=== PATIENT | male | born 1965 | race Hispanic/Latino ===

== ENCOUNTER 2018-01-11 22:43 | Inpatient (IN) | payer MEDICAID, OTHER ==
[~2018-01-11] VITALS: Ht 165.1 cm; Wt 95.7 kg
[2018-01-11 23:59] LABS: BASOPHILS % (AUTO) 0.7 % (0.0-5.0); EOSINOPHILS % (AUTO) 0.5 % (0.0-8.0); HEMATOCRIT 45.5 % (42-54); MEAN CORPUSCULAR HEMOGLOBIN 29.6 pg (27.0-33.0); MEAN CORPUSCULAR HGB CONC 33.8 g/dL (32.0-36.0); MEAN CORPUSCULAR VOLUME 87.5 fL (79-99); MONOCYTES % (AUTO) 5.3 % (3.0-13.0); NEUTROPHILS % (AUTO) 83.5 % (40.0-77.0); PLATELET COUNT (AUTO) 186 K/uL (130-400); RED BLOOD CELL COUNT(AUTO) 5.21 MIL/uL (4.50-6.20); RED CELL DISTRIBUTION WIDTH 12.9 % (11.0-15.5); WHITE BLOOD COUNT (AUTO) 14.3 K/uL (4.8-10.8)
[2018-01-12] LABS: APPEARANCE,URINE Clear (CLEAR); BILIRUBIN,URINE Negative (NEGATIVE); COLOR,URINE Yellow (YELLOW); GLUCOSE, URINE (UA) >=1000 mg/dL (NEGATIVE); KETONES,URINE Trace mg/dL (NEGATIVE); LEUKOCYTE ESTERASE ,URINE Negative (NEGATIVE); NITRATE,URINE Negative (NEGATIVE); OCCULT BLOOD,URINE Negative (NEGATIVE); PH,URINE 5.5 (5.0-8.0); PROTEIN,URINE Negative (NEGATIVE)
[2018-01-12 00:06] LABS: CARBON DIOXIDE 24 mmol/L (21-32); CHLORIDE 99 mmol/L (101-111); CREATININE 1.2 mg/dL (0.5-1.5); GLOMERULAR FILTR. RATE CALC 68 mL/min (>60); GLUCOSE,RANDOM 388 mg/dL (70-105); SODIUM SERUM 134 mmol/L (136-145); UREA NITROGEN, BLOOD 16 mg/dL (7-18)
[2018-01-12] MEDS ORDERED: TETANUS/DIPHTHERIA TOXOID [ADULT] 0.5 ML VIAL IM ONE (00:16)
[2018-01-12] MEDS ORDERED: CEFTRIAXONE SODIUM 1 GM ONE (00:16)
[2018-01-12] MEDS ORDERED: ACETAMINOPHEN 325 MG TAB ONE (00:16)
[2018-01-12] MEDS ORDERED: SODIUM CHLORIDE 0.9% 50 ML IV ONE (00:16)
[2018-01-12 00:19] LABS: BACTERIA,URINE Rare /HPF (None Seen); RBC,URINE 0-1 /HPF (0-1); SQUAMOUS EPITHELIAL CELL,UR 0-2 /HPF (0-2); WBC,URINE 0-1 /HPF (0-1)
[2018-01-12 00:20] LABS: ALANINE AMINOTRANSFERASE 42 U/L (12-78); ALBUMIN 3.4 g/dL (3.5-5.0); ASPARTATE AMINOTRANSFERASE 14 U/L (10-37); BILIRUBIN,TOTAL 0.6 mg/dL (0.2-1.0); CREATINE KINASE, TOTAL 72 U/L (21-232); MYOGLOBIN 26 ng/mL (10-92); TOTAL PROTEIN, SERUM 7.8 g/dL (6.0-8.3); TROPONIN I < 0.04 ng/mL (0.00-0.06)
[2018-01-12 00:24] LABS: PARTIAL THROMBOPLASTIN TIME 30.2 SEC (26.3-35.5); PROTHROMBIN TIME 10.5 SEC (9.6-11.6)
[2018-01-12] MEDS ORDERED: INSULIN HUMULIN R 100 UNIT/ML 3ML ONE (00:34)
[2018-01-12] MEDS ORDERED: ONDANSETRON HCL 4 MG/2 ML VIAL ONE (01:03)
[2018-01-12] MEDS ORDERED: MORPHINE SULFATE 2 MG/ML 1ML SYG ONE (01:03)
[2018-01-12] MEDS ORDERED: VANCOMYCIN 1GM+NS 250ML 250 ML IV SCH (02:00)
[2018-01-12] MEDS ORDERED: ACETAMINOPHEN 325 MG TAB PO PRN (02:00)
[2018-01-12 03:08] LABS: ALBUMIN 3.1 g/dL (3.5-5.0); BILIRUBIN,TOTAL 0.8 mg/dL (0.2-1.0); CREATININE 0.9 mg/dL (0.5-1.5); POTASSIUM 3.9 mmol/L (3.5-5.1); TOTAL PROTEIN, SERUM 7.1 g/dL (6.0-8.3)
[2018-01-12 03:15] VITALS: BP 134/85
[2018-01-12 03:24] LABS: BASOPHILS % (AUTO) 0.9 % (0.0-5.0); EOSINOPHILS % (AUTO) 0.4 % (0.0-8.0); HEMATOCRIT 42.4 % (42-54); LYMPHOCYTES % (AUTO) 9.9 % (21.0-51.0); MEAN CORPUSCULAR HEMOGLOBIN 29.8 pg (27.0-33.0); MEAN CORPUSCULAR HGB CONC 34.4 g/dL (32.0-36.0); MEAN CORPUSCULAR VOLUME 86.6 fL (79-99); MONOCYTES % (AUTO) 6.4 % (3.0-13.0); NEUTROPHILS % (AUTO) 82.4 % (40.0-77.0); PLATELET COUNT (AUTO) 170 K/uL (130-400); WHITE BLOOD COUNT (AUTO) 14.6 K/uL (4.8-10.8)
[2018-01-12] MEDS ORDERED: VANCOMYCIN PROTOCOL PER PHARMACY IV SCH (03:45)
[2018-01-12] MEDS ORDERED: PHARMACY COMMUNICATION MISC SCH (03:45)
[2018-01-12] MEDS ORDERED: ZOSYN 3.375GM+NS 50ML 50 ML IV SCH (05:00)
[2018-01-12] MEDS: MORPHINE SULFATE 2 MG/ML 1ML SYG IV PRN ×4 (05:42→22:49)
[2018-01-12] MEDS ORDERED: VANCOMYCIN 1GM+NS 250ML 250 ML IV ONE (05:46)
[2018-01-12] MEDS: SODIUM CHLORIDE 0.9% 1000ML 1,000 ML IV SCH ×3 (05:48→17:51)
[2018-01-12] MEDS: VANCOMYCIN 1.5 GM in SODIUM CHLORIDE 0.9% 250 ML IV SCH ×2 (06:40→20:54)
[2018-01-12] MEDS ORDERED: COMPOUND IV REFRIGERATED 1 EACH IVSOLN MISC PRN (06:45)
[2018-01-12 08:10] VITALS: BP 140/82
[2018-01-12] MEDS: FAMOTIDINE 20MG TAB 20 MG TAB PO SCH ×2 (09:36→20:54)
[2018-01-12] MEDS: INSULIN LISPRO 100 UNIT/ML 3ML SQ SCH ×3 (09:58→18:06)
[2018-01-12 11:39] VITALS: BP 138/86
[2018-01-12 15:44] VITALS: BP 129/92
[2018-01-12] MEDS: ZOSYN 3.375GM+NS 50ML 50 ML IV SCH ×2 (17:51→20:54)
[2018-01-12 19:45] VITALS: BP 142/99
[2018-01-12] MEDS: INSULIN GLARGINE 100 UNITS/ML 10 ML VIAL SQ SCH (21:00)
[2018-01-12 23:25] VITALS: BP 138/93
[2018-01-13] VITALS (27 sets, daily range): BP systolic 109–141; BP diastolic 67–89
[2018-01-13] MEDS: ZOSYN 3.375GM+NS 50ML 50 ML IV SCH ×3 (04:48→20:55)
[2018-01-13] MEDS: SODIUM CHLORIDE 0.9% 1000ML 1,000 ML IV SCH ×5 (04:55→16:13)
[2018-01-13] MEDS: MORPHINE SULFATE 2 MG/ML 1ML SYG IV PRN (04:55)
[2018-01-13 05:39] LABS: HEMATOCRIT 42.6 % (42-54); MEAN CORPUSCULAR HEMOGLOBIN 29.4 pg (27.0-33.0); MEAN CORPUSCULAR VOLUME 86.5 fL (79-99); PLATELET COUNT (AUTO) 184 K/uL (130-400); RED BLOOD CELL COUNT(AUTO) 4.93 MIL/uL (4.50-6.20); RED CELL DISTRIBUTION WIDTH 12.6 % (11.0-15.5); WHITE BLOOD COUNT (AUTO) 12.7 K/uL (4.8-10.8)
[2018-01-13 06:16] LABS: CRP QUANTITATIVE 63.7 mg/L (0.00-9.0)
[2018-01-13 06:21] LABS: CREATININE 0.9 mg/dL (0.5-1.5)
[2018-01-13] MEDS: INSULIN LISPRO 100 UNIT/ML 3ML SQ SCH ×3 (06:40→17:02)
[2018-01-13] MEDS: FAMOTIDINE 20MG TAB 20 MG TAB PO SCH ×2 (09:00→20:55)
[2018-01-13] MEDS: VANCOMYCIN 1.5 GM in SODIUM CHLORIDE 0.9% 250 ML IV SCH ×2 (09:10→20:55)
[2018-01-13] MEDS ORDERED: ONDANSETRON HCL 4 MG/2 ML VIAL ONE (11:10)
[2018-01-13] MEDS ORDERED: DEXAMETHASONE SOD PHOSPHATE 10MG/ML 1ML VIAL ONE (11:10)
[2018-01-13] MEDS ORDERED: PROPOFOL 10 MG/ML 20ML VIAL IV ONE ×2 (11:10→11:24)
[2018-01-13] MEDS ORDERED: LIDOCAINE PF 2% 5ML ABBOJECT ONE (11:10)
[2018-01-13] MEDS ORDERED: MIDAZOLAM HCL 1 MG/ML 2ML VIAL ONE (11:10)
[2018-01-13] MEDS ORDERED: FENTANYL CITRATE PF 50 MCG/1 ML 2ML VIAL ONE ×2 (11:10→11:25)
[2018-01-13] MEDS ORDERED: ONDANSETRON HCL 4 MG/2 ML VIAL IVP PRN (11:45)
[2018-01-13] MEDS ORDERED: MORPHINE SULFATE 2 MG/ML 1ML SYG IV PRN (11:45)
[2018-01-13] MEDS ORDERED: SODIUM CHLORIDE 3% FOR INHALATION 4 ML/AMP VIAL.NEB IH ONE (11:50)
[2018-01-13] MEDS ORDERED: RACEPINEPHRINE HCL 2.25% 0.5 ML NEB SOLN ONE (11:50)
[2018-01-13] MEDS ORDERED: NALOXONE HCL 0.4 MG/1 ML ML ONE (12:02)
[2018-01-13] MEDS: INSULIN GLARGINE 100 UNITS/ML 10 ML VIAL SQ SCH (20:59)
[2018-01-14] VITALS (7 sets, daily range): BP systolic 115–147; BP diastolic 65–88
[2018-01-14] MEDS: ZOSYN 3.375GM+NS 50ML 50 ML IV SCH ×3 (04:54→21:11)
[2018-01-14 05:11] LABS: HEMATOCRIT 41.2 % (42-54); MEAN CORPUSCULAR HEMOGLOBIN 29.6 pg (27.0-33.0); MEAN CORPUSCULAR HGB CONC 34.2 g/dL (32.0-36.0); MEAN CORPUSCULAR VOLUME 86.5 fL (79-99); PLATELET COUNT (AUTO) 223 K/uL (130-400); RED BLOOD CELL COUNT(AUTO) 4.76 MIL/uL (4.50-6.20); RED CELL DISTRIBUTION WIDTH 12.6 % (11.0-15.5); WHITE BLOOD COUNT (AUTO) 16.2 K/uL (4.8-10.8)
[2018-01-14 05:18] LABS: HEMOGLOBIN A1C 10.6 % (4.0-6.0)
[2018-01-14 05:31] LABS: CREATININE 0.8 mg/dL (0.5-1.5)
[2018-01-14] MEDS: INSULIN LISPRO 100 UNIT/ML 3ML SQ SCH ×3 (07:12→17:26)
[2018-01-14] MEDS: FAMOTIDINE 20MG TAB 20 MG TAB PO SCH ×2 (09:51→21:11)
[2018-01-14] MEDS: VANCOMYCIN 1.75 GM in SODIUM CHLORIDE 0.9% 250 ML IV SCH ×2 (09:51→21:15)
[2018-01-14] MEDS: SODIUM CHLORIDE 0.9% 1000ML 1,000 ML IV SCH (09:51)
[2018-01-14] MEDS: ACETAMINOPHEN-CODEINE 300/30MG TAB PO PRN ×2 (12:22→19:15)
[2018-01-14] MEDS: METFORMIN HCL 500 MG TAB.SR.24H PO SCH (17:21)
[2018-01-14] MEDS: INSULIN HUMULIN R 100 UNIT/ML 3ML SQ SCH ×2 (17:27→21:14)
[2018-01-14] MEDS: INSULIN GLARGINE 100 UNITS/ML 10 ML VIAL SQ SCH (21:16)
[2018-01-15] MEDS: SODIUM CHLORIDE 0.9% 1000ML 1,000 ML IV SCH (03:43)
[2018-01-15 04:28] VITALS: BP 123/84
[2018-01-15] MEDS: ZOSYN 3.375GM+NS 50ML 50 ML IV SCH ×3 (04:57→20:52)
[2018-01-15 05:51] LABS: HEMATOCRIT 39.4 % (42-54); MEAN CORPUSCULAR HEMOGLOBIN 29.6 pg (27.0-33.0); MEAN CORPUSCULAR HGB CONC 34.5 g/dL (32.0-36.0); MEAN CORPUSCULAR VOLUME 85.9 fL (79-99); PLATELET COUNT (AUTO) 234 K/uL (130-400); RED BLOOD CELL COUNT(AUTO) 4.59 MIL/uL (4.50-6.20); RED CELL DISTRIBUTION WIDTH 12.8 % (11.0-15.5); WHITE BLOOD COUNT (AUTO) 11.9 K/uL (4.8-10.8)
[2018-01-15 05:55] LABS: CREATININE 0.9 mg/dL (0.5-1.5); POTASSIUM 3.7 mmol/L (3.5-5.1)
[2018-01-15] MEDS: INSULIN HUMULIN R 100 UNIT/ML 3ML SQ SCH ×4 (06:36→20:53)
[2018-01-15] MEDS: INSULIN LISPRO 100 UNIT/ML 3ML SQ SCH ×3 (06:37→16:45)
[2018-01-15 07:19] LABS: BASOPHILS % (MANUAL) 1 % (0-2); EOSINOPHILS % (MANUAL) 3 % (1-6); LYMPHOCYTES % (MANUAL) 24 % (22-44); MONOCYTES % (MANUAL) 3 % (2-9); SEGMENTED NEUTROPHILS % 69 % (40-70)
[2018-01-15 07:20] LABS: MAN.DIFF COMMENT-IMPRESSION MANUAL DIFFERENTIAL; PLATELET MORPHOLOGY COMMENT ADEQUATE
[2018-01-15 08:00] VITALS: BP 124/78
[2018-01-15] MEDS: FAMOTIDINE 20MG TAB 20 MG TAB PO SCH ×2 (08:24→20:53)
[2018-01-15] MEDS: METFORMIN HCL 500 MG TAB.SR.24H PO SCH ×2 (08:24→16:39)
[2018-01-15] MEDS: VANCOMYCIN 1.75 GM in SODIUM CHLORIDE 0.9% 250 ML IV SCH (08:25)
[2018-01-15] MEDS: ACETAMINOPHEN-CODEINE 300/30MG TAB PO PRN ×2 (08:27→17:33)
[2018-01-15 11:00] VITALS: BP 121/78
[2018-01-15 16:00] VITALS: BP 124/79
[2018-01-15 20:00] VITALS: BP 119/84
[2018-01-15] MEDS: INSULIN GLARGINE 100 UNITS/ML 10 ML VIAL SQ SCH (20:54)
[2018-01-16] VITALS: BP 152/85
[2018-01-16] MEDS: VANCOMYCIN 1.75 GM in SODIUM CHLORIDE 0.9% 250 ML IV SCH ×3 (01:34→22:34)
[2018-01-16] MEDS: ACETAMINOPHEN-CODEINE 300/30MG TAB PO PRN ×3 (02:35→15:45)
[2018-01-16 04:00] VITALS: BP 139/86
[2018-01-16] MEDS: ZOSYN 3.375GM+NS 50ML 50 ML IV SCH ×3 (05:46→22:59)
[2018-01-16] MEDS: GLIPIZIDE 5 MG TABLET PO SCH ×2 (06:28→16:34)
[2018-01-16] MEDS: INSULIN HUMULIN R 100 UNIT/ML 3ML SQ SCH ×4 (06:41→23:04)
[2018-01-16 07:55] VITALS: BP 148/93
[2018-01-16] MEDS: FAMOTIDINE 20MG TAB 20 MG TAB PO SCH ×2 (08:44→22:33)
[2018-01-16] MEDS: METFORMIN HCL 500 MG TAB.SR.24H PO SCH ×2 (08:45→16:34)
[2018-01-16] MEDS ORDERED: DIPHENHYDRAMINE HCL 25 MG CAPSULE PO PRN (10:15)
[2018-01-16 11:24] VITALS: BP 125/94
[2018-01-16 16:19] VITALS: BP 129/78
[2018-01-16 20:00] VITALS: BP 120/86
[2018-01-16] MEDS: INSULIN GLARGINE 100 UNITS/ML 10 ML VIAL SQ SCH (23:05)
[2018-01-17] VITALS: BP 133/82
[2018-01-17 04:00] VITALS: BP 144/88
[2018-01-17 05:22] LABS: HEMATOCRIT 42.1 % (42-54); MEAN CORPUSCULAR HEMOGLOBIN 29.9 pg (27.0-33.0); MEAN CORPUSCULAR HGB CONC 34.8 g/dL (32.0-36.0); MEAN CORPUSCULAR VOLUME 85.8 fL (79-99); NUCLEATED RED BLOOD CELLS 0.1 % (0.0-0.19); PLATELET COUNT (AUTO) 278 K/uL (130-400); RED CELL DISTRIBUTION WIDTH 12.9 % (11.0-15.5); WHITE BLOOD COUNT (AUTO) 10.5 K/uL (4.8-10.8)
[2018-01-17 05:37] LABS: CREATININE 0.8 mg/dL (0.5-1.5); POTASSIUM 3.4 mmol/L (3.5-5.1)
[2018-01-17] MEDS ORDERED: LIDOCAINE HCL-MPF 1% 2ML VIAL IVP PRN (06:15)
[2018-01-17] MEDS ORDERED: POTASSIUM CHLORIDE 20 MEQ ERTAB PO PRN (06:15)
[2018-01-17] MEDS ORDERED: POTASSIUM CHLORIDE 10% ELIXIR 20 MEQ/15 ML UDCUP PO PRN (06:15)
[2018-01-17] MEDS ORDERED: POTASSIUM CHLORIDE 10MEQ/100ML 100 ML IV PRN (06:15)
[2018-01-17] MEDS: INSULIN HUMULIN R 100 UNIT/ML 3ML SQ SCH (07:30)
[2018-01-17] MEDS: ZOSYN 3.375GM+NS 50ML 50 ML IV SCH (07:52)
[2018-01-17] MEDS: GLIPIZIDE 5 MG TABLET PO SCH (08:11)
[2018-01-17] MEDS: METFORMIN HCL 500 MG TAB.SR.24H PO SCH (08:11)
[2018-01-17] MEDS: FAMOTIDINE 20MG TAB 20 MG TAB PO SCH (08:11)
[2018-01-17 08:41] VITALS: BP 138/89
[2018-01-17] MEDS ORDERED: CLIN300C9 PO (10:15)
[2018-01-17 12:02] VITALS: BP 135/72
== END 2018-01-17 13:00 | disposition home or self-care (01) | DRG 383 ==
LOC: EDH 22:43 → EDHIP 22:44 → OBSVTOIN 22:44 → 3AH 01-12 03:57
PROVIDERS: ADMIT Hospitalist; ATTEND Hospitalist
PROC: 3E0234Z Introduction of Serum, Toxoid and Vaccine into Muscle, Percutaneous Approach (ICD-10-PCS; 2018-01-13)
PROC: 0H9LXZZ Drainage of Left Lower Leg Skin, External Approach (ICD-10-PCS; principal; 2018-01-13 11:10)
DX: L03.116 Cellulitis of left lower limb (principal); E11.65 Type 2 diabetes mellitus with hyperglycemia; L02.416 Cutaneous abscess of left lower limb; B95.61 Methicillin susceptible Staphylococcus aureus infection as the cause of diseases classified elsewhere; E87.6 Hypokalemia; Z88.7 Allergy status to serum and vaccine; Z79.4 Long term (current) use of insulin; Z23 Encounter for immunization; Z82.49 Family history of ischemic heart disease and other diseases of the circulatory system; Z83.3 Family history of diabetes mellitus; Z80.9 Family history of malignant neoplasm, unspecified
CPT/HCPCS: 36415; 71045; 80048; 80053; 80061; 80202; 81001; 82550; 82948; 83036; 83605; 83874; 84484; 85025; 85027; 85610; 85730; 86140; 87040; 87070; 87076; 87077; 87088; 87186; 87205; 90714; 93005; 94640; J0696; J1100; J1815; J2001; J2250; J2310; J2405; J2543; J2704; J3010; J3370; J7030; Q0163

== ENCOUNTER 2020-07-27 20:14 | Inpatient (IN) | payer MEDICAID, OTHER ==
[~2020-07-27] VITALS: Ht 167.6 cm; Wt 88.9 kg
[~2020-07-27 20:14] MED LIST: CLIN300C10 PO
[2020-07-27] MEDS ORDERED: ONDANSETRON HCL 4 MG/2 ML VIAL ONE (20:31)
[2020-07-27] MEDS ORDERED: SODIUM CHLORIDE 0.9% 1000ML 2,000 ML IV ONE (20:32)
[2020-07-27 20:47] LABS: BASOPHILS % (AUTO) 0.5 % (0.0-5.0); EOSINOPHILS % (AUTO) 0.1 % (0.0-8.0); HEMATOCRIT 41.8 % (42-54); LYMPHOCYTES % (AUTO) 5.8 % (21.0-51.0); MEAN CORPUSCULAR HGB CONC 34.4 g/dL (32.0-36.0); MEAN CORPUSCULAR VOLUME 84.1 fL (79-99); MONOCYTES % (AUTO) 5.3 % (3.0-13.0); NEUTROPHILS % (AUTO) 86.8 % (40.0-77.0); PLATELET COUNT (AUTO) 152 K/uL (130-400); RED BLOOD CELL COUNT(AUTO) 4.97 MIL/uL (4.50-6.20); RED CELL DISTRIBUTION WIDTH 12.6 % (11.0-15.5); WHITE BLOOD COUNT (AUTO) 16.5 K/uL (4.8-10.8)
[2020-07-27 21:11] LABS: CREATININE 1.1 mg/dL (0.5-1.5); POTASSIUM 4.9 mmol/L (3.5-5.1)
[2020-07-27 21:16] LABS: ALBUMIN 2.9 g/dL (3.5-5.0); BILIRUBIN,TOTAL 2.4 mg/dL (0.2-1.0); TOTAL PROTEIN, SERUM 7.6 g/dL (6.0-8.3)
[2020-07-27 21:35] LABS: BAND NEUTROPHILS % (MANUAL) 29 % (0-2); LYMPHOCYTES % (MANUAL) 10 % (22-44); METAMYELOCYTES % 1 % (0-0); MONOCYTES % (MANUAL) 5 % (2-9); SEGMENTED NEUTROPHILS % 55 % (40-70)
[2020-07-27 21:36] LABS: MAN.DIFF COMMENT-IMPRESSION MANUAL DIFFERENTIAL; PLATELET MORPHOLOGY COMMENT ADEQUATE
[2020-07-27] MEDS ORDERED: SODIUM CHLORIDE 0.9% 1000ML 1,000 ML IV ONE ×2 (22:05→23:33)
[2020-07-27] MEDS ORDERED: SODIUM CHLORIDE 0.9% 50 ML IV ONE (22:05)
[2020-07-27] MEDS ORDERED: ZOSYN 3.375GM+NS 50ML 50 ML IV ONE (22:07)
[2020-07-27 22:43] LABS: APPEARANCE,URINE Clear (CLEAR); BILIRUBIN,URINE Negative (NEGATIVE); COLOR,URINE Yellow (YELLOW); GLUCOSE, URINE (UA) >=1000 mg/dL (NEGATIVE); KETONES,URINE 40 mg/dL (NEGATIVE); LEUKOCYTE ESTERASE ,URINE Negative (NEGATIVE); NITRATE,URINE Negative (NEGATIVE); OCCULT BLOOD,URINE Moderate (NEGATIVE); PH,URINE 5.5 (5.0-8.0); PROTEIN,URINE POS 1+ mg/dL (NEGATIVE)
[2020-07-27 22:51] LABS: AMPHET/METH SCREEN,URINE NEGATIVE (NEGATIVE); BARBITURATE SCREEN, URINE NEGATIVE (NEGATIVE); BENZODIAZEPINES SCREEN,URINE NEGATIVE (NEGATIVE); CANNABINOID SCREEN,URINE NEGATIVE (NEGATIVE); COCAINE SCREEN,URINE NEGATIVE (NEGATIVE); OPIATE SCREEN,URINE NEGATIVE (NEGATIVE); PHENCYCLIDINE SCREEN,URINE NEGATIVE (NEGATIVE)
[2020-07-27 22:55] LABS: BACTERIA,URINE Few /HPF (None Seen); SQUAMOUS EPITHELIAL CELL,UR 0-2 /HPF (0-2)
[2020-07-27] MEDS ORDERED: ACETAMINOPHEN EXTRA STRENGTH 500 MG TABLET ONE (23:32)
[2020-07-27 23:42] LABS: ABG OXYGEN SATURATION 44.1 % (95.0-99.0); BASE EXCESS,VENOUS BLOOD GAS -4.9 (-2.0-3.0); HCO3,VENOUS BLOOD GAS 20.6 (21.0-28.0); PCO2,VENOUS BLOOD GAS 40 (35-48); PH,VENOUS BLOOD GAS 7.331 (7.350-7.450)
[2020-07-28] MEDS ORDERED: INSULIN HUMULIN R 100 UNIT/ML 3ML ONE ×4 (01:06→20:41)
[2020-07-28] MEDS ORDERED: KETOROLAC TROMETHAMINE 30MG/ML ONE (02:15)
[2020-07-28] MEDS ORDERED: ONDANSETRON HCL 4 MG/2 ML VIAL IV PRN (03:15)
[2020-07-28 06:38] LABS: BASOPHILS % (AUTO) 0.6 % (0.0-5.0); EOSINOPHILS % (AUTO) 0.2 % (0.0-8.0); HEMATOCRIT 37.5 % (42-54); LYMPHOCYTES % (AUTO) 6.9 % (21.0-51.0); MEAN CORPUSCULAR HEMOGLOBIN 28.1 pg (27.0-33.0); MEAN CORPUSCULAR HGB CONC 33.6 g/dL (32.0-36.0); MEAN CORPUSCULAR VOLUME 83.5 fL (79-99); NEUTROPHILS % (AUTO) 84.6 % (40.0-77.0); PLATELET COUNT (AUTO) 155 K/uL (130-400); RED BLOOD CELL COUNT(AUTO) 4.49 MIL/uL (4.50-6.20); RED CELL DISTRIBUTION WIDTH 12.9 % (11.0-15.5); WHITE BLOOD COUNT (AUTO) 14.1 K/uL (4.8-10.8)
[2020-07-28] MEDS ORDERED: ZOSYN 3.375GM+NS 50ML 50 ML IV ONE ×3 (06:40→20:26)
[2020-07-28] MEDS ORDERED: SODIUM CHLORIDE 0.9% 100 ML IV ONE (06:41)
[2020-07-28 06:52] LABS: ALBUMIN 2.3 g/dL (3.5-5.0); BILIRUBIN,TOTAL 2.5 mg/dL (0.2-1.0); CREATININE 0.9 mg/dL (0.5-1.5); HEMOGLOBIN A1C 11.6 % (4.0-6.0); POTASSIUM 3.9 mmol/L (3.5-5.1); TOTAL PROTEIN, SERUM 6.3 g/dL (6.0-8.3)
[2020-07-28 08:06] LABS: ERYTHROCYTE SEDIMENTATION RATE 20 MM/HR (0-20)
[2020-07-28] MEDS ORDERED: KETOROLAC TROMETHAMINE 30MG/ML IV PRN (08:30)
[2020-07-28] MEDS ORDERED: FAMOTIDINE/PF 20 MG/2 ML VIAL IV ONE ×2 (09:40→20:27)
[2020-07-28] MEDS ORDERED: SODIUM CHLORIDE 0.9% 1000ML 1,000 ML IV ONE ×2 (09:50→20:24)
[2020-07-28] MEDS ORDERED: SODIUM CHLORIDE 0.9% 50 ML IV ONE ×2 (15:46→20:24)
[2020-07-28] MEDS: FAMOTIDINE/PF 20 MG/2 ML VIAL IV SCH (21:00)
[2020-07-28] MEDS: INSULIN HUMULIN R 100 UNIT/ML 3ML SQ SCH (21:00)
[2020-07-28] MEDS: ZOSYN 3.375GM+NS 50ML 50 ML IV SCH (21:00)
[2020-07-28] MEDS: SODIUM CHLORIDE 0.9% 1000ML 1,000 ML IV SCH (22:52)
[2020-07-28 23:00] VITALS: BP 131/77
[2020-07-28] MEDS: ACETAMINOPHEN 325 MG TAB PO PRN (23:35)
[2020-07-29] VITALS (7 sets, daily range): BP systolic 103–143; BP diastolic 66–81
[2020-07-29] MEDS: ZOSYN 3.375GM+NS 50ML 50 ML IV SCH ×2 (05:09→13:37)
[2020-07-29 05:46] LABS: BASOPHILS % (AUTO) 0.5 % (0.0-5.0); EOSINOPHILS % (AUTO) 0.1 % (0.0-8.0); HEMATOCRIT 34.7 % (42-54); LYMPHOCYTES % (AUTO) 8.5 % (21.0-51.0); MEAN CORPUSCULAR HEMOGLOBIN 28.7 pg (27.0-33.0); MEAN CORPUSCULAR VOLUME 84.4 fL (79-99); PLATELET COUNT (AUTO) 173 K/uL (130-400); RED BLOOD CELL COUNT(AUTO) 4.11 MIL/uL (4.50-6.20); RED CELL DISTRIBUTION WIDTH 13.1 % (11.0-15.5); WHITE BLOOD COUNT (AUTO) 14.6 K/uL (4.8-10.8)
[2020-07-29] MEDS: INSULIN HUMULIN R 100 UNIT/ML 3ML SQ SCH ×4 (06:09→21:33)
[2020-07-29 06:21] LABS: BILIRUBIN,TOTAL 2.8 mg/dL (0.2-1.0); CREATININE 0.9 mg/dL (0.5-1.5); POTASSIUM 3.6 mmol/L (3.5-5.1)
[2020-07-29] MEDS: FAMOTIDINE/PF 20 MG/2 ML VIAL IV SCH ×2 (08:38→21:09)
[2020-07-29] MEDS: SODIUM CHLORIDE 0.9% 1000ML 1,000 ML IV SCH ×2 (09:44→19:06)
[2020-07-29] MEDS: ACETAMINOPHEN 325 MG TAB PO PRN ×2 (15:39→23:29)
[2020-07-29] MEDS ORDERED: VANCOMYCIN PROTOCOL PER PHARMACY IV SCH (15:45)
[2020-07-29] MEDS ORDERED: COMPOUND IV REFRIGERATED 1 EACH IVSOLN MISC PRN (16:30)
[2020-07-29] MEDS ORDERED: VANCOMYCIN 2 GM in SODIUM CHLORIDE 0.9% 500ML 500 ML IV ONE (16:30)
[2020-07-29] MEDS: INSULIN GLARGINE 100 UNITS/ML 10 ML VIAL SQ SCH (21:34)
[2020-07-29] MEDS ORDERED: VANCOMYCIN 1GM+NS 250ML 250 ML IV ONE (23:25)
[2020-07-29] MEDS: VANCOMYCIN 1GM+NS 250ML 250 ML IV SCH (23:30)
[2020-07-30 03:28] VITALS: BP 123/69
[2020-07-30] MEDS: SODIUM CHLORIDE 0.9% 1000ML 1,000 ML IV SCH ×2 (04:17→14:59)
[2020-07-30] MEDS: MORPHINE SULFATE 2 MG/ML 1ML SYG IV PRN (05:02)
[2020-07-30 05:21] LABS: BASOPHILS % (AUTO) 0.5 % (0.0-5.0); EOSINOPHILS % (AUTO) 0.2 % (0.0-8.0); LYMPHOCYTES % (AUTO) 7.2 % (21.0-51.0); MEAN CORPUSCULAR HEMOGLOBIN 28.5 pg (27.0-33.0); MEAN CORPUSCULAR VOLUME 83.9 fL (79-99); MONOCYTES % (AUTO) 3.2 % (3.0-13.0); NEUTROPHILS % (AUTO) 81.8 % (40.0-77.0); PLATELET COUNT (AUTO) 213 K/uL (130-400); RED BLOOD CELL COUNT(AUTO) 4.17 MIL/uL (4.50-6.20); RED CELL DISTRIBUTION WIDTH 13.2 % (11.0-15.5); WHITE BLOOD COUNT (AUTO) 17.1 K/uL (4.8-10.8)
[2020-07-30 05:47] LABS: ALBUMIN 1.8 g/dL (3.5-5.0); BILIRUBIN,TOTAL 2.3 mg/dL (0.2-1.0); POTASSIUM 3.4 mmol/L (3.5-5.1); TOTAL PROTEIN, SERUM 5.9 g/dL (6.0-8.3)
[2020-07-30] MEDS: INSULIN HUMULIN R 100 UNIT/ML 3ML SQ SCH ×4 (06:26→20:39)
[2020-07-30 07:15] VITALS: BP 138/76
[2020-07-30] MEDS ORDERED: POTASSIUM CHLORIDE 20MEQ/100ML 100 ML IV PRN ×2 (09:45)
[2020-07-30] MEDS ORDERED: POTASSIUM CHLORIDE 10% ELIXIR 20 MEQ/15 ML UDCUP PO PRN (09:45)
[2020-07-30] MEDS ORDERED: SODIUM CHLORIDE 0.9% 250 ML IV ONE ×2 (10:00→17:13)
[2020-07-30] MEDS: FAMOTIDINE/PF 20 MG/2 ML VIAL IV SCH ×2 (10:01→20:32)
[2020-07-30] MEDS: VANCOMYCIN 1GM+NS 250ML 250 ML IV SCH ×2 (10:01→17:23)
[2020-07-30] MEDS: KETOROLAC TROMETHAMINE 15MG/ML IM PRN (10:53)
[2020-07-30 12:00] VITALS: BP 124/70
[2020-07-30] MEDS: POTASSIUM CHLORIDE 20 MEQ ERTAB PO PRN ×2 (15:53→20:32)
[2020-07-30 16:14] VITALS: BP 128/81
[2020-07-30 19:59] VITALS: BP 142/77
[2020-07-30] MEDS: ACETAMINOPHEN 325 MG TAB PO PRN (20:32)
[2020-07-30] MEDS: INSULIN GLARGINE 100 UNITS/ML 10 ML VIAL SQ SCH (20:40)
[2020-07-31] MEDS: SODIUM CHLORIDE 0.9% 1000ML 1,000 ML IV SCH ×2 (00:21→11:36)
[2020-07-31] MEDS: VANCOMYCIN 1GM+NS 250ML 250 ML IV SCH ×2 (00:21→09:53)
[2020-07-31 00:30] VITALS: BP 120/68
[2020-07-31 03:55] VITALS: BP 135/77
[2020-07-31] MEDS: KETOROLAC TROMETHAMINE 15MG/ML IM PRN (04:55)
[2020-07-31 05:35] LABS: BASOPHILS % (AUTO) 0.4 % (0.0-5.0); EOSINOPHILS % (AUTO) 0.2 % (0.0-8.0); HEMATOCRIT 33.2 % (42-54); LYMPHOCYTES % (AUTO) 5.6 % (21.0-51.0); MEAN CORPUSCULAR HEMOGLOBIN 28.1 pg (27.0-33.0); MEAN CORPUSCULAR VOLUME 82.6 fL (79-99); NEUTROPHILS % (AUTO) 81.9 % (40.0-77.0); PLATELET COUNT (AUTO) 251 K/uL (130-400); RED BLOOD CELL COUNT(AUTO) 4.02 MIL/uL (4.50-6.20); RED CELL DISTRIBUTION WIDTH 13.3 % (11.0-15.5); WHITE BLOOD COUNT (AUTO) 22.5 K/uL (4.8-10.8)
[2020-07-31 05:58] LABS: ALBUMIN 1.6 g/dL (3.5-5.0); CREATININE 0.8 mg/dL (0.5-1.5); POTASSIUM 3.4 mmol/L (3.5-5.1); TOTAL PROTEIN, SERUM 5.6 g/dL (6.0-8.3)
[2020-07-31] MEDS: INSULIN HUMULIN R 100 UNIT/ML 3ML SQ SCH ×4 (06:14→21:18)
[2020-07-31] MEDS: POTASSIUM CHLORIDE 20 MEQ ERTAB PO PRN (06:16)
[2020-07-31 07:17] LABS: HEPATITIS A ANTIBODY IGM Negative (Negative); HEPATITIS B CORE IGM Negative (Negative); HEPATITIS Bs ANTIGEN SCREEN P Negative (Negative)
[2020-07-31 08:00] VITALS: BP 130/76
[2020-07-31] MEDS: FAMOTIDINE/PF 20 MG/2 ML VIAL IV SCH ×2 (09:53→20:36)
[2020-07-31] MEDS ORDERED: SODIUM CHLORIDE 0.9% 250 ML IV ONE ×2 (11:20→20:31)
[2020-07-31] MEDS: LACTULOSE 20 GM/30 ML UDCUP PO SCH ×2 (11:31→20:37)
[2020-07-31] MEDS: DOXYCYCLINE 100MG+NS 250ML 250 ML IV SCH ×3 (11:32→20:36)
[2020-07-31 12:00] VITALS: BP 117/84
[2020-07-31] MEDS ORDERED: COMPOUND IV REFRIGERATED 1 EACH IVSOLN MISC PRN (13:30)
[2020-07-31] MEDS: VANCOMYCIN 1.25 GM in SODIUM CHLORIDE 0.9% 250 ML IV SCH ×2 (14:38→21:19)
[2020-07-31 16:00] VITALS: BP 123/70
[2020-07-31] MEDS: ACETAMINOPHEN 325 MG TAB PO PRN ×2 (16:11→20:36)
[2020-07-31] MEDS ORDERED: IOHEXOL 350 MG/ML 100ML INFUS..BTL IV ONE (18:52)
[2020-07-31 20:00] VITALS: BP 114/63
[2020-07-31] MEDS: MORPHINE SULFATE 2 MG/ML 1ML SYG IV PRN (20:44)
[2020-07-31] MEDS: INSULIN GLARGINE 100 UNITS/ML 10 ML VIAL SQ SCH (21:19)
[2020-08-01] VITALS (7 sets, daily range): BP systolic 101–132; BP diastolic 50–78
[2020-08-01] MEDS: SODIUM CHLORIDE 0.9% 1000ML 1,000 ML IV SCH (04:05)
[2020-08-01] MEDS: MORPHINE SULFATE 2 MG/ML 1ML SYG IV PRN (04:13)
[2020-08-01 04:50] LABS: BASOPHILS % (AUTO) 0.4 % (0.0-5.0); EOSINOPHILS % (AUTO) 0.4 % (0.0-8.0); HEMATOCRIT 32.5 % (42-54); LYMPHOCYTES % (AUTO) 4.8 % (21.0-51.0); MEAN CORPUSCULAR HEMOGLOBIN 27.9 pg (27.0-33.0); MEAN CORPUSCULAR HGB CONC 33.5 g/dL (32.0-36.0); MEAN CORPUSCULAR VOLUME 83.1 fL (79-99); NEUTROPHILS % (AUTO) 83.2 % (40.0-77.0); PLATELET COUNT (AUTO) 279 K/uL (130-400); RED BLOOD CELL COUNT(AUTO) 3.91 MIL/uL (4.50-6.20); RED CELL DISTRIBUTION WIDTH 13.4 % (11.0-15.5); WHITE BLOOD COUNT (AUTO) 27.7 K/uL (4.8-10.8)
[2020-08-01] MEDS: VANCOMYCIN 1.25 GM in SODIUM CHLORIDE 0.9% 250 ML IV SCH ×3 (05:02→23:32)
[2020-08-01 05:07] LABS: ALBUMIN 1.6 g/dL (3.5-5.0); CREATININE 0.8 mg/dL (0.5-1.5); POTASSIUM 3.6 mmol/L (3.5-5.1); TOTAL PROTEIN, SERUM 5.6 g/dL (6.0-8.3)
[2020-08-01] MEDS: KETOROLAC TROMETHAMINE 15MG/ML IM PRN (05:39)
[2020-08-01] MEDS: INSULIN HUMULIN R 100 UNIT/ML 3ML SQ SCH ×4 (06:00→21:47)
[2020-08-01 08:27] LABS: CREATINE KINASE, TOTAL 71 U/L (21-232)
[2020-08-01 08:33] LABS: CRP QUANTITATIVE 328.9 mg/L (0.00-9.0)
[2020-08-01 08:44] LABS: GAMMA GLUTAMYL TRANSFERASE 124 U/L (5-85)
[2020-08-01] MEDS: FAMOTIDINE/PF 20 MG/2 ML VIAL IV SCH ×2 (09:00→21:33)
[2020-08-01] MEDS: LACTULOSE 20 GM/30 ML UDCUP PO SCH ×2 (09:00→21:33)
[2020-08-01] MEDS: DOXYCYCLINE 100MG+NS 250ML 250 ML IV SCH ×2 (09:15→21:33)
[2020-08-01] MEDS ORDERED: SODIUM CHLORIDE 0.9% 250 ML IV ONE ×2 (09:26→21:31)
[2020-08-01 10:34] LABS: THYROID STIMULATING HORMONE 1.66 uIU/mL (0.36-3.74)
[2020-08-01] MEDS ORDERED: GADOTERATE MEGLUMINE 10 MMOL/20 ML VIAL IV ONE (14:29)
[2020-08-01] MEDS: ACETAMINOPHEN 325 MG TAB PO PRN (17:22)
[2020-08-01] MEDS: INSULIN GLARGINE 100 UNITS/ML 10 ML VIAL SQ SCH (21:48)
[2020-08-02] MEDS: SODIUM CHLORIDE 0.9% 1000ML 1,000 ML IV SCH (02:52)
[2020-08-02 03:59] VITALS: BP 135/70
[2020-08-02] MEDS: VANCOMYCIN 1.25 GM in SODIUM CHLORIDE 0.9% 250 ML IV SCH ×3 (06:04→22:08)
[2020-08-02] MEDS: INSULIN HUMULIN R 100 UNIT/ML 3ML SQ SCH ×4 (06:06→21:19)
[2020-08-02 06:47] LABS: CRP QUANTITATIVE 248.1 mg/L (0.00-9.0)
[2020-08-02 08:00] VITALS: BP 136/71
[2020-08-02 08:00] LABS: BASOPHILS % (AUTO) 0.5 % (0.0-5.0); EOSINOPHILS % (AUTO) 0.5 % (0.0-8.0); HEMATOCRIT 31.1 % (42-54); LYMPHOCYTES % (AUTO) 4.3 % (21.0-51.0); MEAN CORPUSCULAR HEMOGLOBIN 28.2 pg (27.0-33.0); MEAN CORPUSCULAR HGB CONC 33.4 g/dL (32.0-36.0); MEAN CORPUSCULAR VOLUME 84.3 fL (79-99); NEUTROPHILS % (AUTO) 83.5 % (40.0-77.0); PLATELET COUNT (AUTO) 314 K/uL (130-400); RED BLOOD CELL COUNT(AUTO) 3.69 MIL/uL (4.50-6.20); RED CELL DISTRIBUTION WIDTH 13.6 % (11.0-15.5); WHITE BLOOD COUNT (AUTO) 28.2 K/uL (4.8-10.8)
[2020-08-02 08:07] LABS: ALBUMIN 1.5 g/dL (3.5-5.0); BILIRUBIN,TOTAL 1.5 mg/dL (0.2-1.0); CREATININE 0.8 mg/dL (0.5-1.5); POTASSIUM 3.1 mmol/L (3.5-5.1); TOTAL PROTEIN, SERUM 5.5 g/dL (6.0-8.3)
[2020-08-02] MEDS: LACTULOSE 20 GM/30 ML UDCUP PO SCH ×2 (09:00→20:24)
[2020-08-02] MEDS ORDERED: HYDROMORPHONE 1 MG/1 ML AMP IVP SCH (10:45)
[2020-08-02] MEDS ORDERED: SODIUM CHLORIDE 0.9% 250 ML IV ONE ×2 (10:48→19:46)
[2020-08-02] MEDS: FAMOTIDINE/PF 20 MG/2 ML VIAL IV SCH ×2 (11:34→20:24)
[2020-08-02] MEDS: DOXYCYCLINE 100MG+NS 250ML 250 ML IV SCH ×2 (11:34→20:24)
[2020-08-02 12:00] VITALS: BP 141/72
[2020-08-02] MEDS ORDERED: IOHEXOL 350 MG/ML 100ML INFUS..BTL IV ONE (12:58)
[2020-08-02] MEDS ORDERED: GADOTERATE MEGLUMINE 10 MMOL/20 ML VIAL IV ONE (13:21)
[2020-08-02 17:15] VITALS: BP 115/73
[2020-08-02 20:00] VITALS: BP 106/73
[2020-08-02] MEDS: INSULIN GLARGINE 100 UNITS/ML 10 ML VIAL SQ SCH (21:18)
[2020-08-02] MEDS: POTASSIUM CHLORIDE 20 MEQ ERTAB PO PRN (23:35)
[2020-08-02] MEDS: KETOROLAC TROMETHAMINE 15MG/ML IV PRN (23:39)
[2020-08-02 23:54] VITALS: BP 122/71
[2020-08-03] MEDS: POTASSIUM CHLORIDE 20 MEQ ERTAB PO PRN ×2 (01:48→05:26)
[2020-08-03] MEDS: SODIUM CHLORIDE 0.9% 1000ML 1,000 ML IV SCH (03:47)
[2020-08-03 04:00] VITALS: BP 117/75
[2020-08-03 04:35] LABS: BASOPHILS % (AUTO) 0.3 % (0.0-5.0); EOSINOPHILS % (AUTO) 0.7 % (0.0-8.0); HEMATOCRIT 31.8 % (42-54); LYMPHOCYTES % (AUTO) 7.3 % (21.0-51.0); MEAN CORPUSCULAR HEMOGLOBIN 28.8 pg (27.0-33.0); MEAN CORPUSCULAR HGB CONC 33.6 g/dL (32.0-36.0); MEAN CORPUSCULAR VOLUME 85.7 fL (79-99); MONOCYTES % (AUTO) 4.4 % (3.0-13.0); NEUTROPHILS % (AUTO) 82.2 % (40.0-77.0); PLATELET COUNT (AUTO) 363 K/uL (130-400); RED BLOOD CELL COUNT(AUTO) 3.71 MIL/uL (4.50-6.20); RED CELL DISTRIBUTION WIDTH 13.6 % (11.0-15.5); WHITE BLOOD COUNT (AUTO) 24.1 K/uL (4.8-10.8)
[2020-08-03 04:45] LABS: ALBUMIN 1.5 g/dL (3.5-5.0); BILIRUBIN,TOTAL 1.1 mg/dL (0.2-1.0); CREATININE 0.8 mg/dL (0.5-1.5); POTASSIUM 3.5 mmol/L (3.5-5.1); TOTAL PROTEIN, SERUM 5.8 g/dL (6.0-8.3)
[2020-08-03 05:02] LABS: CRP QUANTITATIVE 210.7 mg/L (0.00-9.0)
[2020-08-03] MEDS: VANCOMYCIN 1.25 GM in SODIUM CHLORIDE 0.9% 250 ML IV SCH ×2 (05:27→14:00)
[2020-08-03] MEDS: INSULIN HUMULIN R 100 UNIT/ML 3ML SQ SCH ×4 (06:05→23:22)
[2020-08-03 07:30] VITALS: BP 119/71
[2020-08-03] MEDS: LACTULOSE 20 GM/30 ML UDCUP PO SCH ×2 (09:00→23:08)
[2020-08-03 11:00] VITALS: BP 106/57
[2020-08-03] MEDS: DOXYCYCLINE 100MG+NS 250ML 250 ML IV SCH (11:27)
[2020-08-03] MEDS: FAMOTIDINE/PF 20 MG/2 ML VIAL IV SCH ×2 (11:27→23:10)
[2020-08-03 16:00] VITALS: BP 142/71
[2020-08-03 20:35] VITALS: BP 117/54
[2020-08-03] MEDS ORDERED: SODIUM CHLORIDE 0.9% 500 ML IV ONE (22:03)
[2020-08-03] MEDS: VANCOMYCIN 1GM+NS 250ML 250 ML IV SCH (23:09)
[2020-08-03] MEDS: RIFAMPIN 300 MG CAPSULE PO SCH (23:10)
[2020-08-03] MEDS: INSULIN GLARGINE 100 UNITS/ML 10 ML VIAL SQ SCH (23:21)
[2020-08-03 23:30] VITALS: BP 134/66
[2020-08-04] MEDS: DOXYCYCLINE 100MG+NS 250ML 250 ML IV SCH ×3 (01:15→22:57)
[2020-08-04 04:09] VITALS: BP 128/59
[2020-08-04] MEDS ORDERED: SODIUM CHLORIDE 0.9% 250 ML IV ONE ×3 (05:27→17:15)
[2020-08-04 05:42] LABS: BASOPHILS % (AUTO) 0.3 % (0.0-5.0); EOSINOPHILS % (AUTO) 0.5 % (0.0-8.0); HEMATOCRIT 31.2 % (42-54); LYMPHOCYTES % (AUTO) 7.2 % (21.0-51.0); MEAN CORPUSCULAR HGB CONC 33.3 g/dL (32.0-36.0); MEAN CORPUSCULAR VOLUME 83.9 fL (79-99); MONOCYTES % (AUTO) 3.8 % (3.0-13.0); PLATELET COUNT (AUTO) 412 K/uL (130-400); RED BLOOD CELL COUNT(AUTO) 3.72 MIL/uL (4.50-6.20); RED CELL DISTRIBUTION WIDTH 13.4 % (11.0-15.5); WHITE BLOOD COUNT (AUTO) 22.1 K/uL (4.8-10.8)
[2020-08-04] MEDS: INSULIN HUMULIN R 100 UNIT/ML 3ML SQ SCH ×4 (05:44→21:16)
[2020-08-04] MEDS: VANCOMYCIN 1GM+NS 250ML 250 ML IV SCH ×4 (05:46→21:08)
[2020-08-04] MEDS: SODIUM CHLORIDE 0.9% 1000ML 1,000 ML IV SCH (05:46)
[2020-08-04 06:10] LABS: ALBUMIN 1.5 g/dL (3.5-5.0); BILIRUBIN,TOTAL 1.9 mg/dL (0.2-1.0); CREATININE 0.7 mg/dL (0.5-1.5); CRP QUANTITATIVE 153.2 mg/L (0.00-9.0); POTASSIUM 3.5 mmol/L (3.5-5.1); TOTAL PROTEIN, SERUM 5.7 g/dL (6.0-8.3)
[2020-08-04 07:55] VITALS: BP 125/77
[2020-08-04] MEDS: FAMOTIDINE/PF 20 MG/2 ML VIAL IV SCH ×2 (08:52→21:08)
[2020-08-04] MEDS: RIFAMPIN 300 MG CAPSULE PO SCH ×2 (09:27→21:09)
[2020-08-04] MEDS: LACTULOSE 20 GM/30 ML UDCUP PO SCH ×2 (09:27→21:08)
[2020-08-04 12:18] VITALS: BP 126/74
[2020-08-04 16:52] VITALS: BP 122/64
[2020-08-04 19:00] VITALS: BP 144/74
[2020-08-04] MEDS ORDERED: SODIUM CHLORIDE 0.9% 750 ML IV ONE (20:42)
[2020-08-04] MEDS: INSULIN GLARGINE 100 UNITS/ML 10 ML VIAL SQ SCH (21:15)
[2020-08-05] VITALS (10 sets, daily range): BP systolic 123–136; BP diastolic 67–87
[2020-08-05] MEDS: SODIUM CHLORIDE 0.9% 1000ML 1,000 ML IV SCH (03:47)
[2020-08-05] MEDS: VANCOMYCIN 1GM+NS 250ML 250 ML IV SCH ×4 (04:36→20:47)
[2020-08-05] MEDS: KETOROLAC TROMETHAMINE 15MG/ML IV PRN ×2 (04:39→18:30)
[2020-08-05 04:54] LABS: BASOPHILS % (AUTO) 0.3 % (0.0-5.0); HEMATOCRIT 32.3 % (42-54); LYMPHOCYTES % (AUTO) 7.9 % (21.0-51.0); MEAN CORPUSCULAR HEMOGLOBIN 28.2 pg (27.0-33.0); MEAN CORPUSCULAR HGB CONC 32.8 g/dL (32.0-36.0); MEAN CORPUSCULAR VOLUME 85.9 fL (79-99); MONOCYTES % (AUTO) 3.6 % (3.0-13.0); PLATELET COUNT (AUTO) 481 K/uL (130-400); RED BLOOD CELL COUNT(AUTO) 3.76 MIL/uL (4.50-6.20); RED CELL DISTRIBUTION WIDTH 13.6 % (11.0-15.5); WHITE BLOOD COUNT (AUTO) 18.7 K/uL (4.8-10.8)
[2020-08-05 05:08] LABS: INR 1.24 (0.85-1.15); PROTHROMBIN TIME 13.3 SEC (9.6-11.6)
[2020-08-05 05:09] LABS: PARTIAL THROMBOPLASTIN TIME 27.1 SEC (26.3-35.5)
[2020-08-05 05:16] LABS: ALBUMIN 1.6 g/dL (3.5-5.0); BILIRUBIN,TOTAL 2.1 mg/dL (0.2-1.0); CREATININE 0.8 mg/dL (0.5-1.5); MAGNESIUM 1.8 mg/dL (1.80-2.40); POTASSIUM 3.6 mmol/L (3.5-5.1); TOTAL PROTEIN, SERUM 6.1 g/dL (6.0-8.3)
[2020-08-05] MEDS: INSULIN HUMULIN R 100 UNIT/ML 3ML SQ SCH ×4 (07:15→20:46)
[2020-08-05] MEDS: FAMOTIDINE/PF 20 MG/2 ML VIAL IV SCH ×2 (07:42→20:45)
[2020-08-05] MEDS: RIFAMPIN 300 MG CAPSULE PO SCH ×2 (07:43→20:45)
[2020-08-05] MEDS: DOXYCYCLINE 100MG+NS 250ML 250 ML IV SCH ×2 (07:43→20:46)
[2020-08-05] MEDS: LACTULOSE 20 GM/30 ML UDCUP PO SCH ×2 (07:43→20:44)
[2020-08-05] MEDS ORDERED: FENTANYL CITRATE PF 50 MCG/1 ML 2ML VIAL ONE (12:51)
[2020-08-05] MEDS ORDERED: MIDAZOLAM HCL 1 MG/ML 2ML VIAL ONE (12:52)
[2020-08-05] MEDS ORDERED: LIDOCAINE HCL 2% VISCOUS 15 ML UDCUP ONE (13:45)
[2020-08-05] MEDS ORDERED: MAGNESIUM 2GM PREMIX 50ML 50 ML IV PRN (18:15)
[2020-08-05] MEDS: POTASSIUM CHLORIDE 20 MEQ ERTAB PO PRN (20:45)
[2020-08-05] MEDS: INSULIN GLARGINE 100 UNITS/ML 10 ML VIAL SQ SCH (20:46)
[2020-08-06] VITALS: BP 133/72
[2020-08-06] MEDS: SODIUM CHLORIDE 0.9% 1000ML 1,000 ML IV SCH (02:57)
[2020-08-06] MEDS ORDERED: SODIUM CHLORIDE 0.9% 250 ML IV ONE ×2 (03:33→07:39)
[2020-08-06] MEDS: VANCOMYCIN 1GM+NS 250ML 250 ML IV SCH (03:36)
[2020-08-06 03:57] VITALS: BP 138/78
[2020-08-06 04:51] LABS: HEMATOCRIT 29.8 % (42-54); MEAN CORPUSCULAR HEMOGLOBIN 28.7 pg (27.0-33.0); MEAN CORPUSCULAR HGB CONC 33.6 g/dL (32.0-36.0); MEAN CORPUSCULAR VOLUME 85.4 fL (79-99); PLATELET COUNT (AUTO) 484 K/uL (130-400); RED BLOOD CELL COUNT(AUTO) 3.49 MIL/uL (4.50-6.20); RED CELL DISTRIBUTION WIDTH 13.6 % (11.0-15.5); WHITE BLOOD COUNT (AUTO) 14.7 K/uL (4.8-10.8)
[2020-08-06 05:01] LABS: CREATININE 0.8 mg/dL (0.5-1.5)
[2020-08-06 05:34] LABS: BAND NEUTROPHILS % (MANUAL) 4 % (0-2); LYMPHOCYTES % (MANUAL) 7 % (22-44); MAN.DIFF COMMENT-IMPRESSION MANUAL DIFFERENTIAL; MONOCYTES % (MANUAL) 6 % (2-9); SEGMENTED NEUTROPHILS % 83 % (40-70)
[2020-08-06] MEDS: INSULIN HUMULIN R 100 UNIT/ML 3ML SQ SCH ×4 (05:43→19:55)
[2020-08-06] MEDS ORDERED: COMPOUND IV REFRIGERATED 1 EACH IVSOLN MISC PRN (06:30)
[2020-08-06] MEDS: KETOROLAC TROMETHAMINE 15MG/ML IV PRN (07:21)
[2020-08-06] MEDS: FAMOTIDINE/PF 20 MG/2 ML VIAL IV SCH ×2 (08:28→20:11)
[2020-08-06] MEDS: RIFAMPIN 300 MG CAPSULE PO SCH (08:28)
[2020-08-06] MEDS: DOXYCYCLINE 100MG+NS 250ML 250 ML IV SCH ×2 (08:28→20:09)
[2020-08-06] MEDS: LACTULOSE 20 GM/30 ML UDCUP PO SCH ×2 (09:00→20:12)
[2020-08-06] MEDS: VANCOMYCIN 1.5 GM in SODIUM CHLORIDE 0.9% 250 ML IV SCH ×2 (09:25→20:11)
[2020-08-06] MEDS: MULTIVITS,STRESS FORMULA/ZINC 1 TABLET PO SCH (09:26)
[2020-08-06 09:36] VITALS: BP 128/67
[2020-08-06] MEDS: ENOXAPARIN SODIUM 40 MG/0.4 ML SYRINGE SQ SCH (09:39)
[2020-08-06] MEDS ORDERED: TRAMADOL HCL 50 MG TABLET PO SCH (09:45)
[2020-08-06] MEDS: TRAMADOL HCL 50 MG TABLET PO PRN ×2 (09:49→16:08)
[2020-08-06 12:44] VITALS: BP 131/76
[2020-08-06 17:49] VITALS: BP 120/72
[2020-08-06] MEDS ORDERED: KETOROLAC TROMETHAMINE 15MG/ML ONE (19:15)
[2020-08-06] MEDS: KETOROLAC TROMETHAMINE 15MG/ML IM PRN (20:11)
[2020-08-06 20:13] VITALS: BP 117/64
[2020-08-06] MEDS: NYSTATIN 15 GM POWDER TP SCH (20:13)
[2020-08-06] MEDS: INSULIN GLARGINE 100 UNITS/ML 10 ML VIAL SQ SCH (20:13)
[2020-08-07 00:07] VITALS: BP 136/77
[2020-08-07 03:51] VITALS: BP 138/68
[2020-08-07] MEDS: INSULIN HUMULIN R 100 UNIT/ML 3ML SQ SCH ×4 (05:08→21:14)
[2020-08-07 06:39] LABS: BASOPHILS % (AUTO) 0.8 % (0.0-5.0); HEMATOCRIT 32.5 % (42-54); LYMPHOCYTES % (AUTO) 12.4 % (21.0-51.0); MEAN CORPUSCULAR HEMOGLOBIN 28.9 pg (27.0-33.0); MEAN CORPUSCULAR HGB CONC 32.9 g/dL (32.0-36.0); MEAN CORPUSCULAR VOLUME 87.8 fL (79-99); MONOCYTES % (AUTO) 4.5 % (3.0-13.0); NEUTROPHILS % (AUTO) 78.8 % (40.0-77.0); PLATELET COUNT (AUTO) 391 K/uL (130-400); RED CELL DISTRIBUTION WIDTH 13.7 % (11.0-15.5); WHITE BLOOD COUNT (AUTO) 11.8 K/uL (4.8-10.8)
[2020-08-07 07:10] LABS: CREATININE 0.7 mg/dL (0.5-1.5); CRP QUANTITATIVE 127.2 mg/L (0.00-9.0)
[2020-08-07 08:16] VITALS: BP 147/78
[2020-08-07] MEDS: TRAMADOL HCL 50 MG TABLET PO PRN ×2 (09:00→23:04)
[2020-08-07] MEDS: NYSTATIN 15 GM POWDER TP SCH ×2 (09:00→21:16)
[2020-08-07] MEDS: KETOROLAC TROMETHAMINE 15MG/ML IM PRN (09:00)
[2020-08-07] MEDS: DOXYCYCLINE 100MG+NS 250ML 250 ML IV SCH ×2 (09:15→21:17)
[2020-08-07] MEDS: FAMOTIDINE/PF 20 MG/2 ML VIAL IV SCH ×2 (09:27→21:17)
[2020-08-07] MEDS: VANCOMYCIN 1.5 GM in SODIUM CHLORIDE 0.9% 250 ML IV SCH ×2 (09:28→21:17)
[2020-08-07] MEDS: LACTULOSE 20 GM/30 ML UDCUP PO SCH ×2 (09:29→21:16)
[2020-08-07] MEDS: MULTIVITS,STRESS FORMULA/ZINC 1 TABLET PO SCH (09:30)
[2020-08-07] MEDS: ENOXAPARIN SODIUM 40 MG/0.4 ML SYRINGE SQ SCH (09:30)
[2020-08-07 12:07] VITALS: BP 124/64
[2020-08-07 16:29] VITALS: BP 120/87
[2020-08-07 20:00] VITALS: BP 118/66
[2020-08-07] MEDS: INSULIN GLARGINE 100 UNITS/ML 10 ML VIAL SQ SCH (21:16)
[2020-08-08] VITALS (7 sets, daily range): BP systolic 118–135; BP diastolic 63–79
[2020-08-08 05:34] LABS: BASOPHILS % (AUTO) 0.5 % (0.0-5.0); EOSINOPHILS % (AUTO) 0.8 % (0.0-8.0); HEMATOCRIT 30.5 % (42-54); LYMPHOCYTES % (AUTO) 14.8 % (21.0-51.0); MEAN CORPUSCULAR HEMOGLOBIN 28.3 pg (27.0-33.0); MEAN CORPUSCULAR HGB CONC 32.8 g/dL (32.0-36.0); MEAN CORPUSCULAR VOLUME 86.4 fL (79-99); MONOCYTES % (AUTO) 5.2 % (3.0-13.0); NEUTROPHILS % (AUTO) 76.3 % (40.0-77.0); PLATELET COUNT (AUTO) 617 K/uL (130-400); RED BLOOD CELL COUNT(AUTO) 3.53 MIL/uL (4.50-6.20); RED CELL DISTRIBUTION WIDTH 13.7 % (11.0-15.5); WHITE BLOOD COUNT (AUTO) 15.3 K/uL (4.8-10.8)
[2020-08-08 05:51] LABS: CREATININE 0.7 mg/dL (0.5-1.5); CRP QUANTITATIVE 125.5 mg/L (0.00-9.0); MAGNESIUM 1.8 mg/dL (1.80-2.40); POTASSIUM 3.4 mmol/L (3.5-5.1)
[2020-08-08] MEDS: INSULIN HUMULIN R 100 UNIT/ML 3ML SQ SCH ×4 (06:55→20:46)
[2020-08-08] MEDS: POTASSIUM CHLORIDE 20 MEQ ERTAB PO PRN ×2 (06:56→17:56)
[2020-08-08] MEDS: MULTIVITS,STRESS FORMULA/ZINC 1 TABLET PO SCH (09:00)
[2020-08-08] MEDS: VANCOMYCIN 1.5 GM in SODIUM CHLORIDE 0.9% 250 ML IV SCH ×2 (09:00→20:53)
[2020-08-08] MEDS: ASPIRIN 81MG TAB.CHEW PO SCH (10:25)
[2020-08-08] MEDS: LACTULOSE 20 GM/30 ML UDCUP PO SCH ×2 (10:26→20:52)
[2020-08-08] MEDS: ENOXAPARIN SODIUM 40 MG/0.4 ML SYRINGE SQ SCH (10:27)
[2020-08-08] MEDS: DOXYCYCLINE 100MG+NS 250ML 250 ML IV SCH ×2 (10:27→20:52)
[2020-08-08] MEDS: FAMOTIDINE/PF 20 MG/2 ML VIAL IV SCH ×2 (10:28→20:52)
[2020-08-08] MEDS: TRAMADOL HCL 50 MG TABLET PO PRN (10:35)
[2020-08-08] MEDS: NYSTATIN 15 GM POWDER TP SCH ×2 (10:42→20:53)
[2020-08-08] MEDS: MORPHINE SULFATE 2 MG/ML 1ML SYG IVP PRN (13:13)
[2020-08-08] MEDS: INSULIN GLARGINE 100 UNITS/ML 10 ML VIAL SQ SCH (20:52)
[2020-08-09 04:00] VITALS: BP 126/79
[2020-08-09 06:02] LABS: BASOPHILS % (AUTO) 0.5 % (0.0-5.0); EOSINOPHILS % (AUTO) 0.6 % (0.0-8.0); HEMATOCRIT 30.6 % (42-54); LYMPHOCYTES % (AUTO) 14.1 % (21.0-51.0); MEAN CORPUSCULAR HEMOGLOBIN 28.5 pg (27.0-33.0); MEAN CORPUSCULAR HGB CONC 33.3 g/dL (32.0-36.0); MEAN CORPUSCULAR VOLUME 85.5 fL (79-99); MONOCYTES % (AUTO) 4.9 % (3.0-13.0); NEUTROPHILS % (AUTO) 78.2 % (40.0-77.0); PLATELET COUNT (AUTO) 496 K/uL (130-400); RED BLOOD CELL COUNT(AUTO) 3.58 MIL/uL (4.50-6.20); RED CELL DISTRIBUTION WIDTH 13.6 % (11.0-15.5); WHITE BLOOD COUNT (AUTO) 12.4 K/uL (4.8-10.8)
[2020-08-09] MEDS: INSULIN HUMULIN R 100 UNIT/ML 3ML SQ SCH ×4 (06:36→21:47)
[2020-08-09 08:07] VITALS: BP 139/64
[2020-08-09] MEDS: FAMOTIDINE/PF 20 MG/2 ML VIAL IV SCH ×2 (09:00→21:44)
[2020-08-09] MEDS: VANCOMYCIN 1.5 GM in SODIUM CHLORIDE 0.9% 250 ML IV SCH ×2 (09:00→21:44)
[2020-08-09] MEDS: MULTIVITS,STRESS FORMULA/ZINC 1 TABLET PO SCH (09:00)
[2020-08-09 11:32] VITALS: BP 120/63
[2020-08-09] MEDS: ENOXAPARIN SODIUM 40 MG/0.4 ML SYRINGE SQ SCH (11:40)
[2020-08-09] MEDS: ASPIRIN 81MG TAB.CHEW PO SCH (11:40)
[2020-08-09] MEDS: LACTULOSE 20 GM/30 ML UDCUP PO SCH ×2 (11:40→21:44)
[2020-08-09] MEDS: DOXYCYCLINE 100MG+NS 250ML 250 ML IV SCH ×2 (11:41→21:45)
[2020-08-09] MEDS: NYSTATIN 15 GM POWDER TP SCH ×2 (11:42→21:49)
[2020-08-09] MEDS ORDERED: DIPHENHYDRAMINE HCL 25 MG CAPSULE PO SCH (14:30)
[2020-08-09 14:57] LABS: MAGNESIUM 1.8 mg/dL (1.80-2.40); POTASSIUM 4.3 mmol/L (3.5-5.1)
[2020-08-09 16:59] VITALS: BP 122/72
[2020-08-09 20:00] VITALS: BP 126/74
[2020-08-09] MEDS: INSULIN GLARGINE 100 UNITS/ML 10 ML VIAL SQ SCH (21:49)
[2020-08-09] MEDS: TRAMADOL HCL 50 MG TABLET PO PRN (22:25)
[2020-08-09 23:55] VITALS: BP 133/75
[2020-08-10] VITALS (25 sets, daily range): BP systolic 101–127; BP diastolic 67–83
[2020-08-10] MEDS: INSULIN HUMULIN R 100 UNIT/ML 3ML SQ SCH ×4 (06:36→20:41)
[2020-08-10 08:05] LABS: BASOPHILS % (AUTO) 0.4 % (0.0-5.0); EOSINOPHILS % (AUTO) 0.6 % (0.0-8.0); HEMATOCRIT 33.4 % (42-54); LYMPHOCYTES % (AUTO) 14.9 % (21.0-51.0); MEAN CORPUSCULAR HEMOGLOBIN 28.1 pg (27.0-33.0); MEAN CORPUSCULAR HGB CONC 32.3 g/dL (32.0-36.0); MEAN CORPUSCULAR VOLUME 86.8 fL (79-99); MONOCYTES % (AUTO) 4.8 % (3.0-13.0); NEUTROPHILS % (AUTO) 77.4 % (40.0-77.0); PLATELET COUNT (AUTO) 496 K/uL (130-400); RED BLOOD CELL COUNT(AUTO) 3.85 MIL/uL (4.50-6.20); RED CELL DISTRIBUTION WIDTH 13.8 % (11.0-15.5); WHITE BLOOD COUNT (AUTO) 10.9 K/uL (4.8-10.8)
[2020-08-10] MEDS ORDERED: SODIUM CHLORIDE 0.9% 1000ML 1,000 ML IV ONE (08:37)
[2020-08-10] MEDS ORDERED: MIDAZOLAM HCL 1 MG/ML 2ML VIAL ONE (08:54)
[2020-08-10] MEDS ORDERED: KETAMINE 50MG/ML SYRINGE 50 MG/ML DISP.SYRIN IV ONE (08:57)
[2020-08-10] MEDS: LACTULOSE 20 GM/30 ML UDCUP PO SCH ×2 (09:00→20:32)
[2020-08-10] MEDS: ASPIRIN 81MG TAB.CHEW PO SCH (09:00)
[2020-08-10] MEDS: NYSTATIN 15 GM POWDER TP SCH ×2 (09:00→20:33)
[2020-08-10] MEDS: FAMOTIDINE/PF 20 MG/2 ML VIAL IV SCH ×2 (09:00→20:32)
[2020-08-10] MEDS: MULTIVITS,STRESS FORMULA/ZINC 1 TABLET PO SCH (09:00)
[2020-08-10] MEDS: ENOXAPARIN SODIUM 40 MG/0.4 ML SYRINGE SQ SCH (09:00)
[2020-08-10] MEDS: VANCOMYCIN 1.5 GM in SODIUM CHLORIDE 0.9% 250 ML IV SCH ×2 (09:00→20:33)
[2020-08-10] MEDS ORDERED: PROPOFOL 10 MG/ML 20ML VIAL IV ONE (09:01)
[2020-08-10] MEDS ORDERED: BUPIVACAINE/PF 0.5% 30ML VIAL ONE (09:11)
[2020-08-10] MEDS ORDERED: LIDOCAINE HCL 1% 20 ML VIAL ONE (09:11)
[2020-08-10] MEDS: DOXYCYCLINE 100MG+NS 250ML 250 ML IV SCH ×2 (09:15→21:04)
[2020-08-10] MEDS: INSULIN GLARGINE 100 UNITS/ML 10 ML VIAL SQ SCH (20:40)
[2020-08-10] MEDS ORDERED: SODIUM CHLORIDE 0.9% 250 ML IV ONE (20:48)
[2020-08-11 04:00] VITALS: BP 117/70
[2020-08-11 04:14] LABS: BASOPHILS % (AUTO) 0.5 % (0.0-5.0); EOSINOPHILS % (AUTO) 1.1 % (0.0-8.0); HEMATOCRIT 32.4 % (42-54); LYMPHOCYTES % (AUTO) 14.4 % (21.0-51.0); MEAN CORPUSCULAR HEMOGLOBIN 28.9 pg (27.0-33.0); MEAN CORPUSCULAR HGB CONC 33.6 g/dL (32.0-36.0); MEAN CORPUSCULAR VOLUME 85.9 fL (79-99); MONOCYTES % (AUTO) 4.5 % (3.0-13.0); NEUTROPHILS % (AUTO) 77.5 % (40.0-77.0); PLATELET COUNT (AUTO) 449 K/uL (130-400); RED BLOOD CELL COUNT(AUTO) 3.77 MIL/uL (4.50-6.20); RED CELL DISTRIBUTION WIDTH 13.7 % (11.0-15.5); WHITE BLOOD COUNT (AUTO) 11.1 K/uL (4.8-10.8)
[2020-08-11 04:33] LABS: BILIRUBIN,TOTAL 0.7 mg/dL (0.2-1.0); CREATININE 0.8 mg/dL (0.5-1.5); POTASSIUM 3.9 mmol/L (3.5-5.1); TOTAL PROTEIN, SERUM 7.7 g/dL (6.0-8.3)
[2020-08-11] MEDS: INSULIN HUMULIN R 100 UNIT/ML 3ML SQ SCH ×4 (05:51→20:54)
[2020-08-11] MEDS: MULTIVITS,STRESS FORMULA/ZINC 1 TABLET PO SCH (09:00)
[2020-08-11] MEDS: LACTULOSE 20 GM/30 ML UDCUP PO SCH ×2 (09:05→20:52)
[2020-08-11] MEDS: FAMOTIDINE/PF 20 MG/2 ML VIAL IV SCH ×2 (09:05→20:52)
[2020-08-11] MEDS: ASPIRIN 81MG TAB.CHEW PO SCH (09:05)
[2020-08-11] MEDS: ENOXAPARIN SODIUM 40 MG/0.4 ML SYRINGE SQ SCH (09:06)
[2020-08-11] MEDS: DOXYCYCLINE 100MG+NS 250ML 250 ML IV SCH (09:09)
[2020-08-11] MEDS: NYSTATIN 15 GM POWDER TP SCH ×2 (09:09→20:56)
[2020-08-11] MEDS: VANCOMYCIN 1.5 GM in SODIUM CHLORIDE 0.9% 250 ML IV SCH ×2 (09:14→20:56)
[2020-08-11] MEDS: TRAMADOL HCL 50 MG TABLET PO PRN (09:15)
[2020-08-11 09:26] VITALS: BP 111/77
[2020-08-11] MEDS ORDERED: SODIUM CHLORIDE 0.9% 250 ML IV ONE (09:30)
[2020-08-11 12:48] VITALS: BP 115/69
[2020-08-11 16:48] VITALS: BP 121/70
[2020-08-11] MEDS: MORPHINE SULFATE 2 MG/ML 1ML SYG IVP PRN (18:43)
[2020-08-11 20:00] VITALS: BP 99/65
[2020-08-11] MEDS: INSULIN GLARGINE 100 UNITS/ML 10 ML VIAL SQ SCH (20:55)
[2020-08-11 23:00] VITALS: BP 103/65
[2020-08-12 04:00] VITALS: BP 111/63
[2020-08-12 04:06] LABS: EOSINOPHILS % (AUTO) 1.7 % (0.0-8.0); HEMATOCRIT 31.7 % (42-54); LYMPHOCYTES % (AUTO) 16.7 % (21.0-51.0); MEAN CORPUSCULAR HEMOGLOBIN 27.9 pg (27.0-33.0); MEAN CORPUSCULAR HGB CONC 32.5 g/dL (32.0-36.0); MEAN CORPUSCULAR VOLUME 85.9 fL (79-99); MONOCYTES % (AUTO) 5.8 % (3.0-13.0); NEUTROPHILS % (AUTO) 71.4 % (40.0-77.0); PLATELET COUNT (AUTO) 469 K/uL (130-400); RED BLOOD CELL COUNT(AUTO) 3.69 MIL/uL (4.50-6.20); RED CELL DISTRIBUTION WIDTH 13.6 % (11.0-15.5); WHITE BLOOD COUNT (AUTO) 10.2 K/uL (4.8-10.8)
[2020-08-12] MEDS: INSULIN HUMULIN R 100 UNIT/ML 3ML SQ SCH ×4 (05:49→21:00)
[2020-08-12 08:07] VITALS: BP 115/69
[2020-08-12] MEDS: NYSTATIN 15 GM POWDER TP SCH ×2 (09:00→22:36)
[2020-08-12] MEDS: MULTIVITS,STRESS FORMULA/ZINC 1 TABLET PO SCH (09:00)
[2020-08-12] MEDS: VANCOMYCIN 1.5 GM in SODIUM CHLORIDE 0.9% 250 ML IV SCH ×2 (10:31→22:34)
[2020-08-12] MEDS: ASPIRIN 81MG TAB.CHEW PO SCH (10:31)
[2020-08-12] MEDS: LACTULOSE 20 GM/30 ML UDCUP PO SCH ×2 (10:31→22:34)
[2020-08-12] MEDS: FAMOTIDINE/PF 20 MG/2 ML VIAL IV SCH ×2 (10:31→22:34)
[2020-08-12] MEDS: ENOXAPARIN SODIUM 40 MG/0.4 ML SYRINGE SQ SCH (10:32)
[2020-08-12] MEDS: MORPHINE SULFATE 2 MG/ML 1ML SYG IVP PRN (10:47)
[2020-08-12 10:59] VITALS: BP 104/81
[2020-08-12 15:56] VITALS: BP 98/68
[2020-08-12 20:08] VITALS: BP 109/67
[2020-08-12] MEDS: INSULIN GLARGINE 100 UNITS/ML 10 ML VIAL SQ SCH (22:36)
[2020-08-12 23:35] VITALS: BP 117/68
[2020-08-13 03:38] VITALS: BP 106/58
[2020-08-13 05:07] LABS: EOSINOPHILS % (AUTO) 3.1 % (0.0-8.0); HEMATOCRIT 30.3 % (42-54); LYMPHOCYTES % (AUTO) 17.8 % (21.0-51.0); MEAN CORPUSCULAR HEMOGLOBIN 28.7 pg (27.0-33.0); MEAN CORPUSCULAR VOLUME 86.8 fL (79-99); MONOCYTES % (AUTO) 6.6 % (3.0-13.0); PLATELET COUNT (AUTO) 404 K/uL (130-400); RED BLOOD CELL COUNT(AUTO) 3.49 MIL/uL (4.50-6.20); RED CELL DISTRIBUTION WIDTH 13.7 % (11.0-15.5)
[2020-08-13] MEDS: INSULIN HUMULIN R 100 UNIT/ML 3ML SQ SCH ×2 (06:43→11:30)
[2020-08-13 07:00] VITALS: BP 107/79
[2020-08-13] MEDS: LACTULOSE 20 GM/30 ML UDCUP PO SCH (09:00)
[2020-08-13] MEDS: MULTIVITS,STRESS FORMULA/ZINC 1 TABLET PO SCH (09:00)
[2020-08-13] MEDS: MORPHINE SULFATE 2 MG/ML 1ML SYG IVP PRN (09:30)
[2020-08-13] MEDS: ENOXAPARIN SODIUM 40 MG/0.4 ML SYRINGE SQ SCH (09:32)
[2020-08-13] MEDS: VANCOMYCIN 1.5 GM in SODIUM CHLORIDE 0.9% 250 ML IV SCH (09:32)
[2020-08-13] MEDS: FAMOTIDINE/PF 20 MG/2 ML VIAL IV SCH (09:33)
[2020-08-13] MEDS: ASPIRIN 81MG TAB.CHEW PO SCH (09:33)
[2020-08-13] MEDS: NYSTATIN 15 GM POWDER TP SCH (09:37)
[2020-08-13 11:41] VITALS: BP 107/66
[2020-08-13] MEDS ORDERED: MORPHINE SULFATE 2 MG/ML 1ML SYG ONE (15:33)
[2020-08-13] MEDS ORDERED: MORPHINE SULFATE 2 MG/ML 1ML SYG IV PRN (15:45)
[2020-08-13 16:46] VITALS: BP 106/66
== END 2020-08-13 17:20 | DRG 871 ==
LOC: EDH 20:14 → EDHIP 20:15 → 3AH 07-28 21:29
PROVIDERS: ADMIT Family Medicine; ATTEND Family Medicine
PROC: 0Y9D0ZZ Drainage of Left Upper Leg, Open Approach (ICD-10-PCS; principal; 2020-08-10 08:57)
DX: A41.02 Sepsis due to Methicillin resistant Staphylococcus aureus (principal); E43 Unspecified severe protein-calorie malnutrition; E87.1 Hypo-osmolality and hyponatremia; L02.414 Cutaneous abscess of left upper limb; L03.113 Cellulitis of right upper limb; L03.114 Cellulitis of left upper limb; M62.82 Rhabdomyolysis; M60.001 Infective myositis, unspecified left arm; L02.416 Cutaneous abscess of left lower limb; L02.415 Cutaneous abscess of right lower limb; E44.1 Mild protein-calorie malnutrition; R65.20 Severe sepsis without septic shock; E11.65 Type 2 diabetes mellitus with hyperglycemia; E86.0 Dehydration; E88.09 Other disorders of plasma-protein metabolism, not elsewhere classified; K59.00 Constipation, unspecified; E66.9 Obesity, unspecified; K40.20 Bilateral inguinal hernia, without obstruction or gangrene, not specified as recurrent; K76.0 Fatty (change of) liver, not elsewhere classified; Z68.35 Body mass index [BMI] 35.0-35.9, adult; R16.0 Hepatomegaly, not elsewhere classified; Z80.1 Family history of malignant neoplasm of trachea, bronchus and lung; Z82.49 Family history of ischemic heart disease and other diseases of the circulatory system; Z83.3 Family history of diabetes mellitus; B35.9 Dermatophytosis, unspecified; B96.89 Other specified bacterial agents as the cause of diseases classified elsewhere; Z20.822 Contact with and (suspected) exposure to COVID-19; A41.89 Other specified sepsis; M62.81 Muscle weakness (generalized); Z88.7 Allergy status to serum and vaccine; Z88.8 Allergy status to other drugs, medicaments and biological substances; Z68.31 Body mass index [BMI] 31.0-31.9, adult; Z90.49 Acquired absence of other specified parts of digestive tract
CPT/HCPCS: 36415; 36600; 71045; 71250; 73202; 73220; 73223; 73720; 74176; 74177; 74181; 76705; 76882; 78227; 80048; 80053; 80074; 80202; 80305; 81001; 82010; 82248; 82550; 82803; 82948; 82977; 83036; 83605; 83690; 83735; 84132; 84145; 84439; 84443; 84484; 85025; 85610; 85651; 85730; 86038; 86140; 86200; 86235; 86701; 87040; 87046; 87077; 87088; 87177; 87186; 87390; 87426; 87637; 87804; 93005; 93306; 93313; 93356; 93925; 93970; 93971; 97039; 99152; 99153; A6266; A9537; G0378; J1170; J1650; J1815; J1885; J2250; J2405; J2543; J2704; J3010; J3370; J3475; J3490; J7030; J7040; J7050; Q0163; Q9967; U0003